=== PATIENT | male | born 1990 | race Caucasian/White ===

== ENCOUNTER 2025-06-10 11:34 | Inpatient (IN) | payer OTHER ==
[~2025-06-10] VITALS: Ht 177.8 cm; Wt 77.0 kg
[2025-06-10 12:31] LABS: PLATELET COUNT (AUTO) 237 K/uL (150-450); RED BLOOD CELL COUNT(AUTO) 4.79 MIL/uL (4.50-5.90); RED CELL DISTRIBUTION WIDTH 13.7 % (11.5-14.5); WHITE BLOOD COUNT (AUTO) 8.0 K/uL (4.5-11.0)
[2025-06-10 12:45] LABS: CALCIUM, TOTAL 8.8 mg/dL (8.8-10.5); CREATININE 1.02 mg/dL (0.60-1.30); GLOMERULAR FILTR. RATE CALC > 60 mL/min (>60); GLUCOSE,RANDOM 111 mg/dL (70-110); SODIUM SERUM 136 mmol/L (136-145); UREA NITROGEN, BLOOD 17 mg/dL (7-18)
[2025-06-10 12:50] LABS: ASPARTATE AMINOTRANSFERASE 63.0 U/L (15-37); TOTAL PROTEIN, SERUM 7.2 g/dL (6.4-8.2)
[2025-06-10] MEDS ORDERED: MAGNESIUM HYDROXIDE SUSPENSION 30 ML UDCUP PO PRN (16:45)
[2025-06-10] MEDS ORDERED: BISACODYL 10 MG RECTAL RECTAL SUPPOSITORY PR PRN (16:45)
[2025-06-10] MEDS ORDERED: ONDANSETRON HCL 4 MG/2 ML VIAL IVP PRN (16:45)
[2025-06-10] MEDS: ACETAMINOPHEN 325 MG TABLET PO PRN (18:19)
[2025-06-10 19:35] VITALS: BP 101/67; PULSE 81; RESP 18; TEMP 98.2; O2SAT 100
[2025-06-10] MEDS: DOCUSATE SODIUM 100 MG CAPSULE PO SCH (20:22)
[2025-06-10] MEDS: HEPARIN SODIUM,PORCINE 5,000 UNITS/ML VIAL SQ SCH (23:46)
[2025-06-11 04:50] VITALS: BP 92/64; PULSE 79; RESP 18; TEMP 97.5; O2SAT 99
[2025-06-11 07:15] LABS: PLATELET COUNT (AUTO) 243 K/uL (150-450); RED BLOOD CELL COUNT(AUTO) 4.55 MIL/uL (4.50-5.90); RED CELL DISTRIBUTION WIDTH 13.5 % (11.5-14.5); WHITE BLOOD COUNT (AUTO) 5.3 K/uL (4.5-11.0)
[2025-06-11 07:29] LABS: CALCIUM, TOTAL 8.7 mg/dL (8.8-10.5); CREATININE 0.87 mg/dL (0.60-1.30); GLOMERULAR FILTR. RATE CALC > 60 mL/min (>60); GLUCOSE,RANDOM 97 mg/dL (70-110); SODIUM SERUM 139 mmol/L (136-145); UREA NITROGEN, BLOOD 14 mg/dL (7-18)
[2025-06-11] MEDS: PANTOPRAZOLE SODIUM 40 MG DR TABLET PO SCH (08:29)
[2025-06-11 08:32] VITALS: BP 100/76; PULSE 75; RESP 18; TEMP 98.2; O2SAT 100
[2025-06-11 09:02] VITALS: PULSE 93; RESP 16; O2SAT 98
[2025-06-11] MEDS: *CLINICAL-LEVOFLOXACIN IVPB DOSING CLINICAL ONE (12:18)
[2025-06-11 12:25] LABS: MTB PCR w/Rif. Resistance-SPUT NOT DETECTED (Not Detectd)
[2025-06-11 12:26] LABS: MTB PCR w/Rif. Resistance-SPUT NOT DETECTED (Not Detectd)
[2025-06-11] MEDS ORDERED: SODIUM CHLORIDE 0.9% 500 ML IV ONE (15:15)
[2025-06-11] MEDS: LEVOFLOXACIN 750 MG/D5% WATER 150 ML IV SCH (15:17)
[2025-06-11] MEDS ORDERED: SODIUM CHLORIDE 3% 15 ML NEB SOLUTION NEB ONE (19:45)
[2025-06-11 19:49] VITALS: BP 110/71; PULSE 79; RESP 20; TEMP 98.1; O2SAT 100
[2025-06-11] MEDS: ZOLPIDEM TARTRATE 5 MG TABLET PO PRN (20:16)
[2025-06-12 04:57] VITALS: BP 104/69; PULSE 65; RESP 18; TEMP 97.9; O2SAT 100
[2025-06-12 07:46] VITALS: BP 105/65; PULSE 80; RESP 18; TEMP 98; O2SAT 98
[2025-06-12 19:19] VITALS: BP 98/71; PULSE 82; RESP 18; TEMP 98.4; O2SAT 99
[2025-06-13 03:28] VITALS: BP 99/71; PULSE 79; RESP 18; TEMP 98.2; O2SAT 98
[2025-06-13 08:00] VITALS: BP 115/62; PULSE 68; RESP 19; TEMP 97.9; O2SAT 98
[2025-06-13 19:45] VITALS: BP 101/71; PULSE 77; RESP 20; TEMP 97.9; O2SAT 100
[2025-06-14 04:37] VITALS: BP 98/71; PULSE 76; RESP 20; TEMP 97.7; O2SAT 99
[2025-06-14 08:17] VITALS: BP 88/63; PULSE 74; RESP 17; TEMP 98.2; O2SAT 100
[2025-06-14] MEDS: GuaiFENesin [SUGAR-FREE] 200 MG/10 ML SOLUTION UDCUP PO PRN (17:08)
[2025-06-14 20:05] VITALS: BP 105/72; PULSE 86; RESP 18; TEMP 97.9; O2SAT 98
[2025-06-15 08:21] VITALS: BP 107/67; PULSE 76; RESP 18; TEMP 98; O2SAT 95
[2025-06-15 20:19] VITALS: BP 102/71; PULSE 82; RESP 18; TEMP 98.4; O2SAT 97
[2025-06-16 03:31] VITALS: BP 95/64; PULSE 70; RESP 18; TEMP 97.6; O2SAT 100
[2025-06-16 10:07] LABS: QUANTIFERON+, Nil Value 0.05 IU/mL; QUANTIFERON+,Mitogen Value >10.00 IU/mL; QUANTIFERON+,TB1 Antigen Value 0.08 IU/mL; QUANTIFERON+,TB2 Antigen Value 0.10 IU/mL; QUANTIFERON, TB GOLD PLUS Negative (Negative)
[2025-06-16 19:23] VITALS: BP 103/74; PULSE 85; RESP 18; TEMP 98.2; O2SAT 96
[2025-06-17 03:55] VITALS: BP 109/71; PULSE 72; RESP 18; TEMP 98.1; O2SAT 98
[2025-06-17 08:48] VITALS: BP 111/77; PULSE 94; RESP 20; TEMP 99; O2SAT 98
[2025-06-17 20:15] VITALS: BP 97/67; PULSE 80; RESP 18; TEMP 98.1; O2SAT 100
[2025-06-18 04:30] VITALS: BP 105/78; PULSE 77; RESP 18; TEMP 98.2; O2SAT 100
[2025-06-18 07:43] VITALS: BP 101/65; PULSE 89; RESP 18; TEMP 97.9; O2SAT 100
[2025-06-18 20:05] VITALS: BP 110/75; PULSE 84; RESP 20; TEMP 98.4; O2SAT 99
[2025-06-19 05:31] VITALS: BP 97/76; PULSE 86; RESP 18; TEMP 98.4; O2SAT 98
[2025-06-19 08:28] VITALS: BP 109/71; PULSE 71; RESP 20; TEMP 98.6; O2SAT 99
[2025-06-19] MEDS ORDERED: SODIUM CHLORIDE 0.9% 500 ML IV ONE (16:26)
[2025-06-19 19:49] VITALS: BP 107/65; PULSE 84; RESP 20; TEMP 98.2; O2SAT 98
[2025-06-20 04:23] VITALS: BP 133/80; PULSE 82; RESP 18; TEMP 98.2; O2SAT 99
[2025-06-20 08:21] VITALS: BP 100/68; PULSE 74; RESP 18; TEMP 97.9; O2SAT 100
== END 2025-06-20 13:20 | DRG 194 ==
LOC: EMS 12:20 → EDH 14:55 → 6N 16:28
PROVIDERS: ADMIT Internal Medicine; ATTEND Internal Medicine
DX: J18.9 Pneumonia, unspecified organism (principal); E87.3 Alkalosis; J47.9 Bronchiectasis, uncomplicated; Z20.1 Contact with and (suspected) exposure to tuberculosis
CPT/HCPCS: 71045; 71250; 80048; 80076; 85025; 86480; 87015; 87206; 87389; 87556; 94640; 99285; J1200; J1644; J1956; J7040; 36415-L1; 36415-TC